=== PATIENT | male | born 1950 | race Caucasian/White ===

== ENCOUNTER 2023-06-20 09:28 | Outpatient (CLI) | payer MEDICARE, SELFPAY ==
--- NOTE | ~2023-06-20 | MR_ITS ---
EXAMINATION: MR pelvis wo/w con INDICATION: Malignant neoplasm of the prostate TECHNIQUE: 3D Axial T2 Cube, Axial 2D FIESTA, Coronal SSFSE ARC, Axial and Coronal 2D FIESTA FatSat, Axial T2 FS, Axial SSFSE BH ARC, Axial 3D DualEcho BH, Axial SSFSE-IR Carmelo, Axial DWI b=600, pre and d ynamic postcontrast Axial LAVA ARC, WATER:POST Cor LAVA-FLEX COMPARISON: None available CONTRAST: Multihance, 18 cc FINDINGS: Changes of prostatectomy are noted. There are no pathologically enlarged pelvic lymph nodes . There are no dilated loops of bowel. There is severe lumbar spondylosis at L5-S1. A 2.6 cm cyst is noted in the right kidney lower pole. There is a 4.6 cm cyst of the left kidney lower pole. Patient v oided during the examination. The bladder appears unremarkable. There are anterior wall thickening of the urinary bladder on post void images likely reflects incomplete distention as the anterior bladde r wall and a normal appearance when distended. IMPRESSION: 1. Changes of prostatectomy without evidence of recurrent disease. Reviewed, dictated and finalized at location B. INSPECTOR
== END 2023-06-20 09:29 | disposition home or self-care (01) ==
LOC: ANHIMG 09:40
PROVIDERS: Visit Provider Radiology Radiation Oncology
DX: C61 Malignant neoplasm of prostate (principal)
CPT/HCPCS: 72197; A9577